=== PATIENT | female | born 1960 | race American Indian/Alaskan Native ===

== ENCOUNTER 2016-12-14 19:28 | Emergency (ER) | payer MEDICAID, OTHER ==
[2016-12-14 19:28] VITALS: BMI 31.7
[2016-12-14] MEDS ORDERED: Sodium Chloride 0.9% 1,000 ML IV ONE (19:59)
[2016-12-14] MEDS ORDERED: Sodium Chloride 0.9% 1,000 ML ONE (20:08)
--- NOTE | 2016-12-14 20:19 | C.PDOC ---
History Of Present Illness A 56 y/o female c/o right posterior chest area pain for 2 days. Pt notes associated cough with occasional production of sputum. Pt denies SOB, dizziness , weakness, fever, chills, lightheadedness, lower extremity pain, diaphoresis, palpitations, N/V/D, or any other complaints. Time Seen by Provider: 12/14/16 20:18 Chief Complaint (Nursing): Shortness Of Breath History Per: Patient History/Exam Limitations: no limitations Onset/Duration Of Symptoms: Days Current Symptoms Are (Timing): Still Present Severity: Mild Associated Symptoms: Productive Cough. denies: Fever, Chills, Sweating, Leg/ Calf Pain, Dizziness, Light-headedness Recent travel outside of the [place]: No Additional History Per: Patient Past Medical History Reviewed: Historical Data, Nursing Documentation, Vital Signs Vital Signs: Last Vital Signs Temp 100.2 F H 12/14/16 19:33 Pulse 95 H 12/14/16 22:52 Resp 18 12/14/16 22:52 BP 124/70 12/14/16 22:52 Pulse Ox 95 12/14/16 22:52 - Medical History PMH: Asthma, HIV Denies: Depression - [facility] Procedures CAUTERY TO STOP EPISTAX (05/17/14) INJECT/INFUSE NEC (09/09/13) Family History: States: Unknown Family Hx - Social History Hx Tobacco Use: No Hx Alcohol Use: Yes Hx Substance Use: No - Immunization History Hx Tetanus Toxoid Vaccination: No Hx Influenza Vaccination: Yes Hx Pneumococcal Vaccination: Yes Review Of Systems Except As Marked, All Systems Reviewed And Found Negative. Constitutional: Negative for: Fever, Chills, Sweats Cardiovascular: Positive for: Chest Pain (right posterior chest area pain). Negative for: Palpitations, Light Headedness Respiratory: Positive for: Cough (Production of sputum). Negative for: Shortness of Breath Gastrointestinal: Negative for: Nausea, Vomiting, Diarrhea Musculoskeletal: Negative for: Leg Pain, Foot Pain Neurological: Negative for: Weakness, Dizziness Physical Exam - Physical Exam Appears: Non-toxic, No Acute Distress Skin: Warm, Dry Head: Atraumatic, Normacephalic Eye(s): bilateral: Normal Inspection Oral Mucosa: Moist Throat: Normal Neck: Trachea Midline, Supple Chest: Symmetrical, No Deformity, No Tenderness Cardiovascular: Rhythm Regular Respiratory: Normal Breath Sounds, No Accessory Muscle Use, No Rales, No Rhonchi , No Wheezing Gastrointestinal/Abdominal: Soft, No Tenderness Extremity: Normal ROM, No Tenderness, No Pedal Edema, Capillary Refill (<2secs) , No Deformity, No Swelling Extremity: Bilateral: Normal Color And Temperature, Normal ROM Neurological/Psych: Oriented x3, Normal Speech, Normal Cognition, Other (No focal deficit) Gait: Steady ED Course And Treatment - Laboratory Results Result Diagrams: 12/14/16 20:17 12/14/16 20:17 ECG: Interpreted By Me, Viewed By Me ECG Rhythm: Sinus Tachycardia ECG Interpretation: No Acute Changes, Abnormal Interpretation Of ECG: Sinus tachycardia, q-wave in inferior leads, no acute ST- T changes Rate From EC O2 Sat by Pulse Oximetry: 97 (RA) Pulse Ox Interpretation: Normal Medical Decision Making Medical Decision Making: Impression: A 56 y/o female c/o right posterior chest area pain for 2 days. With associated cough with occasional production of sputum. Plans: EKG Blood labs CXR Toradol IV fluids Reassess Disposition Counseled Patient/Family Regarding: Diagnosis - Disposition Referrals: [facility] [Outside] Disposition: HOME/ ROUTINE Disposition Time: 22:59 Condition: STABLE Prescriptions: Azithromycin [Zithromax Tri-Alexis] 500 mg PO DAILY #7 tablet Naproxen [Naprosyn Tab] 375 mg PO TIDPC #20 tab Instructions: Upper Respiratory Infection (ED), Noncardiac Chest Pain (ED) - POA Present On Arrival: None - Clinical Impression Clinical Impression: Respiratory tract infection, Chest pain - Scribe Statement The provider has reviewed the documentation as recorded by the Scribmichelle gonzales All medical record entries made by the Dwayneibmichelle were at my direction and personally dictated by me. I have reviewed the chart and agree that the record accurately reflects my personal performance of the history, physical exam, medical decision making, and the department course for this patient. I have also personally directed, reviewed, and agree with the discharge instructions and disposition.
[2016-12-14 20:20] LABS: BASO # 0.1 K/uL (0.0-0.2); BASO % 0.5 % (0.0-2.0); EOS % 0.5 % (0.0-4.0); HEMATOCRIT 39.7 % (34.0-47.0); LYMPH # 3.3 K/uL (1.0-4.3); LYMPH % 31.4 % (20.0-40.0); MEAN CELL VOLUME 81.7 fL (81.0-99.0); MEAN CORPUSCULAR HEMOGLOBIN 27.2 pg (27.0-31.0); MEAN CORPUSCULAR HGB CONC 33.3 g/dL (33.0-37.0); MEAN PLATELET VOLUME 8.1 fL (7.2-11.7); MONO # 1.1 K/uL (0.0-0.8); MONO % 10.1 % (0.0-10.0); RED CELL DISTRIBUTION WIDTH 14.5 % (11.5-14.5); WHITE BLOOD COUNT 10.5 K/uL (4.8-10.8)
[2016-12-14 20:21] LABS: RBC URINE 1 /hpf (0-3); URINE BILIRUBIN NEGATIVE (NEGATIVE); URINE BLOOD NEGATIVE (NEGATIVE); URINE COLOR Yellow (YELLOW); URINE GLUCOSE (UA) NORMAL (Normal); URINE KETONE NEGATIVE (NEGATIVE); URINE LEUKOCYTE ESTERASE NEG Leu/uL (Negative); URINE PROTEIN NEGATIVE (NEGATIVE); URINE UROBILINOGEN NORMAL mg/dL (0.2-1.0); WBC URINE 1 /hpf (0-5)
[2016-12-14 20:29] LABS: CHLORIDE 97 mmol/L (98-107); POTASSIUM 3.7 mmol/L (3.6-5.2); SODIUM 137 mmol/L (132-148)
[2016-12-14 20:31] LABS: AST/SGOT 34 U/L (14-36); BILIRUBIN,TOTAL 0.6 mg/dL (0.2-1.3); CARBON DIOXIDE 26 mmol/L (22-30); GFR AFRICAN-AMERICAN > 60
[2016-12-14 20:32] LABS: ALB/GLOB RATIO 0.9 (1.0-2.1); ALKALINE PHOSPHATASE 108 U/L (38-126); ALT/SGPT 34 U/L (9-52); BLOOD UREA NITROGEN 12 mg/dL (7-17); GLUCOSE,RANDOM 140 mg/dL (65-105); TOTAL PROTEIN 9.2 g/dL (6.3-8.3)
[2016-12-14] MEDS ORDERED: Iodixanol 320 MG/ML 100 ML BOTTLE IV ONE (21:55)
[2016-12-14] MEDS ORDERED: DiphenhydrAMINE 50 mg/ml Inj IVP STA (22:45)
[2016-12-14] MEDS ORDERED: DiphenhydrAMINE 50 mg/ml Inj ONE (22:46)
--- NOTE | 2016-12-14 22:51 | CT ---
EXAM: CT Angiography Chest With Intravenous Contrast CLINICAL HISTORY: 56 years old, female; Pain; Chest pain; Type not specified; Additional info: Chest pain/ elevated d-dimer TECHNIQUE: Axial computed tomographic angiography images of the chest with intravenous contrast using pulmonary embolism protocol. This CT exam was performed using one or more of the following dose reduction techniques: automated exposure control, adjustment of the mA and/or kV according to patient size, and/or use of iterative reconstruction technique. MIP reconstructed images were created and reviewed. Coronal and sagittal reformatted images were created and reviewed. CONTRAST: 100 mL of visipaque 320 administered intravenously. COMPARISON: CR - CHEST TWO VIEWS (PA/LAT) 07/10/2015 10:11:20 AM FINDINGS: Pulmonary arteries: There is no evidence for large or central pulmonary embolism. Suboptimal opacification and motion artifact substantially limits evaluation of smaller branches. Aorta: Thoracic aorta is unremarkable. No thoracic aortic aneurysm. Lungs: There is a small airspace opacity in the right middle lobe which may represent atelectasis or early infiltrate. Tiny airspace opacity in the superior segment of the right lower lobe may represent atelectasis or early infiltrate. There is mild atelectasis and/or scarring in the lung bases. Pleural space: No evidence for significant pleural effusion or pneumothorax. Heart: The heart is borderline in size. No significant pericardial effusion. No evidence of RV dysfunction. Mediastinum: Small hiatal hernia. Thyroid: The thyroid gland is normal. Bones/joints: No displaced fractures identified in the thorax. No dislocation. Soft tissues: Unremarkable. Lymph nodes: There are some borderline to mildly enlarged bilateral axillary nodes. There are a few calcified mediastinal and right hilar nodes compatible with prior granulomatous exposure. No definite mediastinal or hilar adenopathy. Upper abdomen: Scans through the upper abdomen demonstrate no definite acute abnormalities. IMPRESSION: 1. There are some borderline to mildly enlarged bilateral axillary nodes. 2. There are a few calcified mediastinal and right hilar nodes compatible with prior granulomatous exposure. 3. Small hiatal hernia. 4. There is no evidence for large or central pulmonary embolism. Suboptimal opacification and motion artifact substantially limits evaluation of smaller branches. 5. There is a small airspace opacity in the right middle lobe which may represent atelectasis or early infiltrate. 6. Tiny airspace opacity in the superior segment of the right lower lobe may represent atelectasis or early infiltrate.
[2016-12-14 23:33] VITALS: BP 114/63; PULSE 89; RESP 20; TEMP 99.2; O2SAT 96
--- NOTE | 2016-12-15 08:49 | RAD ---
HISTORY: Shortness of breath COMPARISON: No prior. TECHNIQUE: Chest PA and lateral FINDINGS: LUNGS: Diffuse increased interstitial lung markings suggestive for mild edema and or infiltrate. Patchy bibasilar airspace opacities. Trace left pleural effusion. PLEURA: As above. CARDIOVASCULAR: Normal. OSSEOUS STRUCTURES: No significant abnormalities. VISUALIZED UPPER ABDOMEN: Normal. OTHER FINDINGS: None. IMPRESSION: Diffuse increased interstitial lung markings suggestive for mild edema and or infiltrate. Patchy bibasilar airspace opacities. Trace left pleural effusion.
--- NOTE | 2016-12-15 10:02 | CARD ---
APPROVED REPORT EKG Measurement Heart [id number] <Conclusion> Sinus tachycardia Possible Inferior infarct, age undetermined Abnormal ECG
== END 2016-12-14 23:50 | disposition home or self-care (01) ==
LOC: C.ER 19:28
DX: J06.9 Acute upper respiratory infection, unspecified (principal); R07.89 Other chest pain
CPT/HCPCS: 71020; 71275; 80053; 81001; 84484; 85025; 85378; 93005; 96361; 96374; 96375; 99285; J1200; J1885; J7040; Q9967